=== PATIENT | male | born 2000 | race Caucasian/White ===

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

== ENCOUNTER 2022-07-18 16:54 | Emergency (ER) | payer MEDICAID | END 2022-07-18 17:20 | disposition home or self-care (01) | LOC: LB.ED 16:54 | DX: S81.851A Open bite, right lower leg, initial encounter (principal); W54.0XXA Bitten by dog, initial encounter | CPT/HCPCS: 99283 ==

== ENCOUNTER 2023-02-17 01:09 | Emergency (ER) | payer MEDICAID ==
[2023-02-17 03:12] LABS: ESTIMATED GFR 133 mL/min (>60)
[2023-02-17 03:15] LABS: ACETAMINOPHEN < 0.0 ug/mL
== END 2023-02-17 13:04 ==
LOC: LB.ED 01:09
DX: F32.A Depression, unspecified (principal); S51.812A Laceration without foreign body of left forearm, initial encounter; Z72.0 Tobacco use; Z20.822 Contact with and (suspected) exposure to COVID-19; X78.1XXA Intentional self-harm by knife, initial encounter
CPT/HCPCS: 36415; 80048; 80143; 80179; 80307; 84443; 85027; 87635; 99285; A0425; A0429; U0002